=== PATIENT | male | born 1960 | race Caucasian/White ===

== ENCOUNTER 2022-06-16 16:22 | Outpatient (RCR) | payer OTHER, SELFPAY ==
--- NOTE | 2022-06-16 17:45 | PT.OPE ---
PT [place] Outpatient Eval PT [facility] Outpatient Eval Start: 06/16/22 17:21 Freq: Status: Active Protocol: Document 06/16/22 17:21 PARVIN (Rec: 06/16/22 17:39 [facility] Desktop) E-signed By Ever Kelly, PT, ATC Physical Therapy Outpatient Evaluation Insurance Information Insurance Name Medicare B Medical Diagnosis R knee OA Treating Diagnosis R knee pain R knee stiffness Referring Damian BaldwinC Subjective Subjective Pain had been rated a 6/10 a month ago but performance modification at his place of work has helped to lessen amount to 2/10. Seeking a home ex program to work on independently. Will return to PT if symptoms should not improve after a month. 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 Also pain along medial joint line of R knee with active extension-end range. Strength 5/5 R knee ext and flexion Swelling None observed Palpation Tender along medial joint line and inferomedial patella Posture mild genu varum bilaterally. Sensation/Reflexes Normal and symetric Other/Pertinent Objective Chet negative Stable to varus and valgus stress at 0 and 30 degrees Positive pain with patella compression and active quad set Hip ROM WFL's, unrestricted. Assessment Assessment/Impression Lyndon is a pleasant 61 year old who resides with a tire care manager in [place] [facility] [place]. 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 His R knee has improved since activity modifications have been implemented at work (as suggested my his tire care manager-Edwina Buitrago). The examination and diagnostics identified R knee osteoarthritis in the tibiofemoral and patellofemoral joints. Lyndon's tire care manager is requesting a home program-single visit for performance outside of the rehab setting. An exercise program focused towards strengthening of the hip and thigh muscle groups was determined necessary following todays examination. The program was performed and provided to the patient's caregiver. Primary Functional Limitations Extended standing Repeated squatting or stairs Twisting Plan of Care Rehabilitation Potential Good Physical Therapy Goals 1.To demonstrate ability for ex performance for each items listed on his home ex program. 2.Provide written copy to patient's caregiver. Coordination/Communication With Referral Source Frequency/Duration One time Patient Will Be Discharged From Therapy Independent w/HEP Discharge Plan Comments One time visit, evaluation and discharge. Evaluation Billing Untimed Code Treatment Minutes 30 PT Eval No Charge No Complexity Low Certification Information Initial Certification Date 06/16/22 Ending Certification Date 09/15/22 Provider Signature Shows Agreement With POC & Medical Necessity Physician Comment/Change Comment or Changes Physician NPI Number #
== END 2023-04-23 23:59 | disposition home or self-care (01) ==
PROVIDERS: PCP Physician Assistant Medical; Visit Provider Physician Assistant Surgical
DX: M25.561 Pain in right knee (principal); M17.11 Unilateral primary osteoarthritis, right knee; M25.661 Stiffness of right knee, not elsewhere classified; Z51.89 Encounter for other specified aftercare
CPT/HCPCS: 97110; 97161

== ENCOUNTER 2023-04-02 07:18 | Outpatient (CLI) | payer OTHER, SELFPAY | END 2023-04-02 07:19 | disposition home or self-care (01) | PROVIDERS: PCP Physician Assistant Medical; Visit Provider Physician Assistant Medical | DX: Z00.00 Encounter for general adult medical examination without abnormal findings (principal); E78.5 Hyperlipidemia, unspecified; E88.81 Metabolic syndrome and other insulin resistance; F32.A Depression, unspecified; Z12.5 Encounter for screening for malignant neoplasm of prostate | CPT/HCPCS: 80053; 80061; 84153; 84443 ==

== ENCOUNTER 2023-05-22 08:51 | Outpatient (CLI) | payer MEDICARE, SELFPAY | END 2023-05-22 08:52 | disposition home or self-care (01) | LOC: RAD 08:53 | PROVIDERS: PCP Physician Assistant Medical; Visit Provider Physician Assistant Medical | DX: R01.1 Cardiac murmur, unspecified (principal); I35.1 Nonrheumatic aortic (valve) insufficiency; I34.0 Nonrheumatic mitral (valve) insufficiency; I07.1 Rheumatic tricuspid insufficiency | CPT/HCPCS: 93306 ==

== ENCOUNTER 2024-05-23 08:11 | Outpatient (CLI) | payer MEDICARE, SELFPAY ==
--- OUTSIDE RECORDS SUMMARY | 2024-05-23 08:24 | XMS_ITS | Encounter Summary ---
Author Organization [facility] Address [address], [place] [address] Care Team Providers Care Agronomy Specialist Name Role Phone Md Yandel Primary Care Provider Unavailabl e Reason for Visit * Reason Comments Follow-up Encounter Details Date Type Department Care Team (Late st Contact Info) Description 03/23/2024 4:00 PM CDT Office Visit [address] [address] Diane Valenzuela MSW, PIGMENT GRINDER [address] [place], [place] [id number] Anxiety disorder, unspecified type (HRC) (Primary Dx); Depressive disorder; Mild intellectual disabilities; Grief reaction (HRC) Social History Tobacco Use Types Packs/Day Years Used Date Smoking Tobacco: Every Day Cigarettes Sex and Gender Information Value Date Recorded Sex Assigned at Not on file Gender Identity Not on file Sexual Orientation Not on file documented as of this encounter Progress Notes * Diane Valenzuela MSW, PIGMENT GRINDER - 03/23/2024 4:00 PM CDT Subjective In Person Visit: This appointment was conducted in person with the patient in the clinic. Patient presents today for a family session with patient present, to address anxiety, depression, and psychosocial issues. How Aníbal's mental status and behavior affects the family: Patient's sister present during all today's visit. Sister Jillian is patient's guardian-reviewing treatment plan. Family's response to intervention: Sister responsive to being present in appointment today, expresses verbal consent with treatment plan and continuing care 1 time per month. Frequency may vary depending on patient need. Sister also where she is able to call or send message. Patient was present during session Interactive complexity was billed due to Interactive complexity was billed due to communication difficulties among participants that complicated care delivery as the patient/caregiver(s) demonstratedrepeated questions. Extra time required for processing information. Start time: 3:57 p.m., End time: 4:47 p.m.. Based on today's clinical assessment of the patient, patient appears to have the capacity to participate and benefit from psychotherapeutic intervention. Most recent PHQ-9: 11/04/2023 PHQ-9 PHQ9 Score - Smartform (Adult) 0 Patient's sister is present during today's session. We reviewed patient treatment plan. Sister noting concerns related to patient's medical and indicating he will have a follow-up with his physician sometime in the next month. She will have information sent to clinician. She does express her concern s related to his echo last year. We discussed patient feeling tired often and questioning whether this is a side effect from medication, a physical issue/labs or in relation to mental health or behavioral. We discuss ruling out medical concerns 1st. Additionally, discussed the importance of family to Lyndon, having connecting time. This is a priority for Lyndon as well as family. Patient's symptoms impact their functioning in the following areas: Communication with others and Eating. Objective The patient is alert and casually groomed. He behaved in a(n) cooperative, engaged manner during the session today. His affect is anxious. Insight is normal, judgment is normal. His orientation, fundof knowledge and memory are intact. Risk of harm to self: None Reported Risk of harm to others: None Reported Assessment/Plan 1. Anxiety disorder, unspecified type (HRC) 2. Depressive disorder 3. Mild intellectual disabilities 4. Grief reaction (HRC) Treatment Goals: Depression GOAL OBJECTIVE INTERVENTION METHODS PROGRESS TOWARDS GOAL Target Date Depression: Develop skills to manage mood and/or eliminate depressive symptoms. Objective: The patient will be able to identify, challenge, and replace negative, hopeless talk with positive, realistic and empowering talk. identify how stress impacts mental health symptoms, and develop 3-5 effective stress management techniques. Behavioral therapy, CBT, Insight-Oriented Therapy, Solution Focused Therapy and Supportive psychotherapy Progress to date: Stable- 11/04/2025 Anxiety GOAL OBJECTIVE INTERVENTION METHODS PROGRESS TOWARDS GOAL Target Date Anxiety: Reduce apprehensive expectation and intrusive worry associated with behavioral rituals and physicalmanifestations. Objective: The patient will identify, challenge, and replace fearful talk with positive, realistic, and empowering talk Stress management strateges Behavioral therapy, CBT, Relaxation training, Solution Focused Therapy and Supportive psychotherapy Progress to date: stable 11/04/2024 Given the patient's symptoms and level of functioning, it is recommended that the patient be seen in 1 month. Follow up on navigating stressors. Ongoing therapy to address symptoms discussed in today's appointment. documented in this encounter Plan of Treatment Upcoming Encounters Date Type Department Care Team (Late st Contact Info) Description 05/25/2024 4:00 PM CDT Appointment [facility] [address] [place] [address] Diane Valenzuela MSW PIGMENT GRINDER [address], [place] [address] 06/29/2024 4:00 PM CDT Appointment [facility] [address] [place] [address] Diane Valenzuela MSW, PIGMENT GRINDER [address], [place] [address] 07/27/2024 4:00 PM CDT Appointment [facility] [address] [place] [address] Diane Valenzuela MSW, PIGMENT GRINDER [address], [place] [address] documented as of this encounter Visit Diagnoses Diagnosis Anxiety disorder, unspecified type (HRC)- Primary Depressive disorder Depressive disorder, not elsewhere classified Mild intellectual disabilities Grief reaction (HRC) Adjustment disorder with depressed mood documented in this encounter Care Teams Agronomy Specialist Relationship Specialty Start Date End Date Md Yandel PCP - General 09/22/11 documented as of this encounter
--- OUTSIDE RECORDS SUMMARY | 2024-05-23 08:24 | XMS_ITS | Encounter Summary ---
Author Organization [facility] Address [address] [address] Care Team Providers Care Engagement Quality Consultant Name Role Phone Md Yandel Primary Care Provider Unavailabl e Reason for Visit * Reason Comments Follow-up Encounter Details Date Type Department Care Team (Late st Contact Info) Description 02/17/2024 4:00 PM CDT Office Visit [address] [address] Diane Valenzuela MSW, INSEAM LEVELER [address] [place], [place] [phone] Anxiety disorder, unspecified type (HRC) (Primary Dx); Depressive disorder; Mild intellectual disabilities Social History Tobacco Use Types Packs/Day Years Used Date Smoking Tobacco: Every Day Cigarettes Sex and Gender Information Value Date Recorded Sex Assigned at Not on file Gender Identity Not on file Sexual Orientation Not on file documented as of this encounter Progress Notes * Diane Valenzuela MSW, INSEAM LEVELER - 02/17/2024 4:00 PM CDT Subjective In Person Visit: This appointment was conducted in person with the patient in the clinic. Patient presents today for an individual session, to address anxiety, depression, and grief/loss. . Start time: 4:00 p.m., End time: 4:46 p.m.. Based on today's clinical assessment of the patient, patient appears to have the capacity to participate and benefit from psychotherapeutic intervention. Interactive complexity was billed due to communication difficulties among participants that complicated care delivery as the patient/caregiver(s) demonstrated repeated questions. Extra time required for processing information. Most recent PHQ-9: 11/04/2023 PHQ-9 PHQ9 Score - Smartform (Adult) 0 Provided supportive listening as patient shares feeling a little sad today. He attended his friend Ulises's, . Ulises had been his housemate for approximately 8 years. Time spent reminiscing, patient sharing stories. Patient also sharing some of his wishes related to his wanting to be cremated, a special song called ???I believe I can fly?? , having a color book and crayons with him and music-when he dies. He also ponders what cayetano would be like-being able to do what he wants to do. Patient also shares sometimes worrying that he will screw up-others being upset with him. He shares examples at work, recognizing he wants to do the best that he can. We will continue to discuss. Sister out of town and not available to meet today. Patient's symptoms impact their functioning in the following areas: Communication with others. Objective The patient is alert and casually groomed. He behaved in a(n) cooperative, engaged manner during the session today. His affect is subdued. Insight is normal, judgment is normal. His [...] seen in 1 month. Follow up on grief/loss, stressors. Ongoing therapy to address symptoms discussed in today's appointment. documented in this encounter Plan of Treatment Upcoming Encounters Date Type Department Care Team (Late st Contact Info) Description 05/25/2024 4:00 PM CDT Appointment [facility] [address] [place] [address] Diane Valenzuela MSW, LICSW [address] [address] 06/29/2024 4:00 PM CDT Appointment [facility] [address] [place] [address] Diane Valenzuela MSW, LICSW [address] [place] [address] 07/27/2024 4:00 PM CDT Appointment [facility] [address] [place] [address] Diane Valenzuela MSW INSEAM LEVELER [address], [place] [address] documented as of this encounter Visit Diagnoses Diagnosis Anxiety disorder, unspecified type (HRC)- Primary Depressive disorder Depressive disorder, not elsewhere classified Mild intellectual disabilities documented in this encounter Care Teams Engagement Quality Consultant Relationship Specialty Start Date End Date Md Yandel PCP - General 09/22/11 documented as of this encounter
--- OUTSIDE RECORDS SUMMARY | 2024-05-23 08:24 | XMS_ITS | Encounter Summary ---
Author Organization [facility] Address [address], [place] [address] Care Team Providers Care Undercoater Name Role Phone Md Yandel Primary Care Provider Unavailabl e Reason for Visit * Reason Comments Follow-up Encounter Details Date Type Department Care Team (Late st Contact Info) Description 04/20/2024 4:00 PM CDT Office Visit [address] [address] Diane Valenzuela MSW, RECORDAK OPERATOR [address] [place], [place] [phone] Anxiety disorder, unspecified type (HRC) (Primary Dx); Depressive disorder; Mild intellectual disabilities; Grief reaction (HRC) Social History Tobacco Use Types Packs/Day Years Used Date Smoking Tobacco: Every Day Cigarettes Sex and Gender Information Value Date Recorded Sex Assigned at Not on file Gender Identity Not on file Sexual Orientation Not on file documented as of this encounter Progress Notes * Diane Valenzuela MSW, RECORDAK OPERATOR - 04/20/2024 4:00 PM CDT Subjective In Person Visit: This appointment was conducted in person with the patient in the clinic. Patient presents today for an individual session, to address anxiety and depression. . Start time: 3:57 p.m., End time: 4:42 p.m.. Based on today's clinical assessment of the patient, patient appears to have the capacity to participate and benefit from psychotherapeutic intervention. Interactive complexity was billed due to communication difficulties among participants that complicated care delivery as the patient/caregiver(s) demonstrated repeated questions. Extra time required for processing information. Most recent PHQ-9: 03/23/2024 PHQ-9 PHQ9 Score - Smartform (Adult) 5 Provided supportive listening as patient shares updates since last visit. He shares he stayed with his family over the 07 of April in enjoyed playing games, family time. Additionally, he shares some work stressors, feeling anxious that he would be blamed for another coworkers errors. We spent time discussing this, patient able to pause and recognize that would not happen. He brings in his med list today and that will be sent to records for scanning. He shares his blood pressure has been good and he has lost a few lb. He shares enjoying going for walks, he has wrote his bike. He recognizes there are times when he does not feel like doing it and does it anyway. Patient shares he is birthday is [birth year], he will be 64. He believes his sister is planning something and is excited. Clinician validating Patient's symptoms impact their functioning in the following areas: Communication with others. Objective The patient is alert and casually groomed. He behaved in a(n) cooperative, engaged manner during the session today. His affect is appropriate. Insight is normal, judgment is normal. His orientation, fund of knowledge and memory are intact. Risk of [...] and Supportive psychotherapy Progress to date: Stable- 11/04/2024 Anxiety GOAL OBJECTIVE INTERVENTION METHODS PROGRESS TOWARDS GOAL Target Date Anxiety: Reduce apprehensive expectation and intrusive worry associated with behavioral rituals and physicalmanifestations. Objective: The patient will identify, challenge, and replace fearful talk with positive, realistic, and empowering talk Stress management strateges Behavioral therapy, CBT, Relaxation training, Solution Focused Therapy and Supportive psychotherapy Progress to date: stable 11/04/2024 Type of Service Frequency Resolution Date Psychotherapy with patient, 45 minutes. Length may vary depending on need 1 time per month. Frequency may vary Depending on need 12 Month: 11/04/2024 Given the patient's symptoms and level of functioning, it is recommended that the patient be seen in 1 month. Follow up on birthday. Ongoing therapy to address symptoms discussed in today's appointment. documented in this encounter Plan of Treatment Upcoming Encounters Date Type Department Care Team (Late st Contact Info) Description 05/25/2024 4:00 PM CDT Appointment [facility] [address] [place] [address] Diane Valenzuela MSW, LICSW [address], [place] [address] 06/29/2024 4:00 PM CDT Appointment [facility] [address] [place] [address] Diane Valenzuela MSW, RECORDAK OPERATOR [address] [place] [address] 07/27/2024 4:00 PM CDT Appointment [facility] [address] [place] [address] Diane Valenzuela MSW, RECORDAK OPERATOR [address] [place] [address] documented as of this encounter Visit Diagnoses Diagnosis Anxiety disorder, unspecified type (HRC)- Primary Depressive disorder Depressive disorder, not elsewhere classified Mild intellectual disabilities Grief reaction (HRC) Adjustment disorder with depressed mood documented in this encounter Care Teams Undercoater Relationship Specialty Start Date End Date Md Yandel PCP - General 09/22/11 documented as of this encounter
--- OUTSIDE RECORDS SUMMARY | 2024-05-23 08:24 | XMS_ITS | Encounter Summary ---
Author Organization [facility] Address [address], [place] [address] Care Team Providers Care Assistant Professor Of Religion Name Role Phone Md Yandel Primary Care Provider Unavailabl e Reason for Visit * Reason Comments UPDATE Encounter Details Date Type Department Care Team (Late st Contact Info) Description 03/22/2024 Telephone [facility] [address] [place] [address] Diane Valenzuela, POKER ROOM MANAGER, [facility] [address] [facility] [place], [place] [address] UPDATE Social History Tobacco Use Types Packs/Day Years Used Date Smoking Tobacco: Every Day Cigarettes Sex and Gender Information Value Date Recorded Sex Assigned at Not on file Gender Identity Not on file Sexual Orientation Not on file documented as of this encounter Nursing Notes * Michelle Baeza - 03/22/2024 9:16 AM CDT Foster Care Provider (Anders) called. Said Sister is bringing patient to appointment tomorrow, with you. Anders wanted you to know, that patient feels that he's in trouble, because his Sister is comingwith him. Anders asked if you could address this, at appt tomorrow. Said you don't need to call him back, unless you have further questions. documented in this encounter Plan of Treatment Upcoming Encounters Date Type Department Care Team (Late st Contact Info) Description 05/25/2024 4:00 PM CDT Appointment [facility] [address] [place] [address] Diane Valenzuela MSW, REGULATORY AFFAIRS PORTFOLIO LEADER [address], [place] [address] 06/29/2024 4:00 PM CDT Appointment [facility] [address] [place] [address] Diane Valenzuela MSW, REGULATORY AFFAIRS PORTFOLIO LEADER [address], [place] [address] 07/27/2024 4:00 PM CDT Appointment [facility] [address] [place] [address] Diane Valenzuela MSW, REGULATORY AFFAIRS PORTFOLIO LEADER [address], [place] [address] documented as of this encounter Visit Diagnoses Not on filedocumented in this encounter Care Teams Assistant Professor Of Religion Relationship Specialty Start Date End Date Md Yandel PCP - General 09/22/11 documented as of this encounter
--- OUTSIDE RECORDS SUMMARY | 2024-05-23 08:24 | XMS_ITS | Clinical Summary ---
Author Organization [facility] Address [address] [address] Care Team Providers Care General Assembler Name Role Phone Md Yandel Primary Care Provider Unavailabl e Source Comments You are receiving this document as you are listed as the primary care provider,follow-up provider, or the patient has been referred to you for consultation.This is in compliance with the Medicare and[facility] EHR Incentive Program,which states Providers who transition their patient to another setting of careor provider of care or refers their patient to another provider of care shouldprovide summary care record for each transition of care or referral. [facility] Allergies No known active allergies Medications Medication Sig Dispensed Refills Start Date End Date Status escitalopram oxalate (AKA LEXAPRO) 10 MG tablet Take 1 tablet by mouth daily (every 24 hours). 90 tablet 3 1 Active gemfibrozil (LOPID) 600 MG tablet Take 600 mg by mouth 2 times daily. Take 1/2 hours before food. Indications: HYPERTRIGLYCERIDEMIA 1 Active cephALEXin (KEFLEX) 500 MG capsule Take 1 capsule by mouth 3 times daily. 30 capsule 0 1 Active NIACIN ER OR Take 1,000 mg by mouth nightly. Take with food. Do not cut/crush/chew. 1 Active acetaminophen (TYLENOL) 325 MG tablet Take 325-650 mg by mouth every 4 hours as needed. Maximum 12 tablets per day 1 Active fluticasone (FLONASE) 50 MCG/ACT nasal solution Place 2 sprays into each nostril daily (every 24 hours). Dose is for each nostril. Indications: ALLERGIC RHINITIS 1 Active Active Problems Problem Noted Date Diagnosed Date Mental retardation 06/19/2011 Overview (05/27/2017): Unspecified intellectual disabilities ROSA (generalized anxiety disorder) 06/19/2011 Encounters Date Type Department Care Team Description 04/20/2024 4:00 PM CDT Office Visit [facility] [id number] [place] [address] Diane Valenzuela MSW, ESA Anxiety disorder, unspecified type (HRC) (Primary Dx); Depressive disorder; Mild intellectual disabilities; Grief reaction (HRC) 03/23/2024 4:00 PM CDT Office Visit [address] [address] Diane Valenzuela MSW, ESA Anxiety disorder, unspecified type (HRC) (Primary Dx); Depressive disorder; Mild intellectual disabilities; Grief reaction (HRC) 03/22/2024 Telephone [facility] [address] [place] [address] Diane Valenzuela MSW, ESA UPDATE from Last 3 Months Social History Tobacco Use Types Packs/Day Years Used Date Smoking Tobacco: Every Day Cigarettes Sex and Gender Information Value Date Recorded Sex Assigned at Not on file Gender Identity Not on file Sexual Orientation Not on file Last Filed Vital Signs Vital Sign Reading Time Taken Comments Blood Pressure 124/75 05/05/2011 7:04 PM CDT Pulse 70 05/05/2011 7:04 PM CDT Temperature 36.8 ??C (98.2 ??F) 05/05/2011 7:04 PM CD T Respiratory Rate 16 05/05/2011 7:04 PM CDT Oxygen Saturation - - Inhaled Oxygen Concentration - - Weight - - Height - - Body Mass Index - - Plan of Treatment Upcoming Encounters Date Type Department Care Team (Late st Contact Info) Description 05/25/2024 4:00 PM CDT Appointment [facility] [address] [place] [address] Diane Valenzuela MSW, GREY WASHER [address], [place] [address] 06/29/2024 4:00 PM CDT Appointment [facility] [address] [place] [address] Diane Valenzuela, CROP DUSTER, GREY WASHER [address] [place] [address] 07/27/2024 4:00 PM CDT Appointment [facility] [address] [place] [address] Diane Valenzuela, CROP DUSTER, GREY WASHER [address] [place] [address] Health Maintenance Due Date Last Done Comments Colon Cancer Screening Plan Due 1961 Hep C Screening (Preventive Services) 1961 PSA Screening Discussion 1961 Pneumococcal (1 - PCV) 1967 HIV Screening (Preventive Services) 1977 Cholesterol 1996 Zoster/Shingles (1 of 2) 2011 DTaP/Tdap/Td (2 - Tdap) 01/17/2021 01/17/2011 COVID-19 Vaccine (2 - season) 2023 01/11/2021 Medicare Annual Wellness Visit 10/05/2023 Influenza (#1) 2024 08/06/2020, 07/05, 07/21/2018, Additional history exists HepA Aged Out No longer eligi ble based on patient's age to complete this topic HepB Aged Out No longer eligi ble based on patient's age to complete this topic Hib Aged Out No longer eligi ble based on patient's age to complete this topic IPV (Polio) Aged Out No longer eligi ble based on patient's age to complete this topic MCV4 Aged Out No longer eligi ble based on patient's age to complete this topic Care Teams General Assembler Relationship Specialty Start Date End Date Md Yandel PCP - General 09/22/11
--- OUTSIDE RECORDS SUMMARY | 2024-05-23 08:25 | XMS_ITS | Encounter Summary ---
[facility] Address [address] [address] Care Team Providers Care Oral Surgeon Name Role Phone Md Yandel Primary Care Provider Unavailabl e Reason for Visit * Reason Comments FYI Encounter Details Date Type Department Care Team (Late Contact Info) Description 01/28/2024 Telephone [facility] [address] [place] [address] Diane Valenzuela, BELLOWS FILLER, CONVEYOR OPERATOR [address] [place] [address] FYI Social History Tobacco Use Types Packs/Day Years Used Date Smoking Tobacco: Every Day Cigarettes Sex and Gender Information Value Date Recorded Sex Assigned at Not on file Gender Identity Not on file Sexual Orientation Not on file documented as of this encounter Nursing Notes * Dolly Webber - 01/28/2024 11:23 AM CDT Anders pts foster care provider calling, he was able to speak to pts sister Shaunna. Shaunna will be able to attend upcoming appt with pt. documented in this encounter Plan of Treatment Upcoming Encounters Date Type Department Care Team (Late Contact Info) Description 05/25/2024 4:00 PM CDT Appointment [facility] [address] [place] [address] Diane Valenzuela, BELLOWS FILLER, CONVEYOR OPERATOR [address] [place] [address] 06/29/2024 4:00 PM CDT Appointment [facility] [address] [place] [address] Diane Valenzuela, BELLOWS FILLER, CONVEYOR OPERATOR [address] [place] [address] 07/27/2024 4:00 PM CDT Appointment [facility] [address] [place] [address] Diane Valenzuela, BELLOWS FILLER, CONVEYOR OPERATOR [address] [place] [address] documented as of this encounter Visit Diagnoses Not on filedocumented in this encounter Care Teams Oral Surgeon Relationship Specialty Start Date End Date Md Yandel PCP - General 09/22/11 documented as of this encounter
== END 2024-05-23 08:12 | disposition home or self-care (01) ==
PROVIDERS: PCP Physician Assistant Medical; Visit Provider Physician Assistant Medical
DX: I10 Essential (primary) hypertension (principal); Z83.42 Family history of familial hypercholesterolemia; Z13.220 Encounter for screening for lipoid disorders
CPT/HCPCS: 80053; 80061

== ENCOUNTER 2024-07-01 08:59 | Outpatient (CLI) | payer MEDICARE, SELFPAY ==
--- OUTSIDE RECORDS SUMMARY | 2024-07-01 09:01 | XMS_ITS | Encounter Summary ---
Author Organization [facility] Address [address] [address] Care Team Providers Care Auth Specialist Name Role Phone Md Yandel Primary Care Provider Unavailabl e Reason for Visit * Reason Comments Follow-up Encounter Details Date Type Department Care Team (Late st Contact Info) Description 05/25/2024 Telephone [facility] [address] [place] [address] Diane Valenzuela MSW, LICSW [address] [place], [place] [phone] Follow-up Social History Tobacco Use Types Packs/Day Years Used Date Smoking Tobacco: Every Day Cigarettes Sex and Gender Information Value Date Recorded Sex Assigned at Not on file Gender Identity Not on file Sexual Orientation Not on file documented as of this encounter Nursing Notes * Diane Valenzuela MSW, LICSW - 05/25/2024 7:42 AM CDT Voice message received from patient's caregiver, Blake requesting a return call. Clinician returnedcaregivers call. He reports patient has had some struggles with coworkers and beliefs that would behelpful to discuss coping strategies as well as not taking things personal. We will discuss with patient. documented in this encounter Plan of Treatment Upcoming Encounters Date Type Department Care Team (Late st Contact Info) Description 07/27/2024 4:00 PM CDT Appointment [facility] [address] [place] [address] Diane Valenzuela, SWITCHBOARD OPERATOR HELPER, [facility] [address] [place] [address] documented as of this encounter Visit Diagnoses Not on filedocumented in this encounter Care Teams Auth Specialist Relationship Specialty Start Date End Date Md Yandel PCP - General 09/22/11 documented as of this encounter
--- OUTSIDE RECORDS SUMMARY | 2024-07-01 09:01 | XMS_ITS | Encounter Summary ---
Author Organization [facility] Address [address] [address] Care Team Providers Care Senior Research Executive Name Role Phone Md Yandel Primary Care Provider Unavailabl e Reason for Visit * Reason Comments Follow-up Encounter Details Date Type Department Care Team (Late st Contact Info) Description 06/29/2024 4:00 PM CDT Telemedicine [facility] [id number] [place] [address] Diane Valenzuela MSW, SECONDARY SET UP MAN [address] [place], [place] [address] Anxiety disorder, unspecified type (HRC) (Primary Dx); Depressive disorder; Mild intellectual disabilities; Grief reaction (HRC) Social History Tobacco Use Types Packs/Day Years Used Date Smoking Tobacco: Every Day Cigarettes Sex and Gender Information Value Date Recorded Sex Assigned at Not on file Gender Identity Not on file Sexual Orientation Not on file documented as of this encounter Progress Notes * Diane Valenzuela MSW, SECONDARY SET UP MAN - 06/29/2024 4:00 PM CDT Subjective Video Visit: This appointment was conducted via telehealth (video) as it is the patient's preference and it is appropriate for the treatment being provided. Patient location: home, Clinician location: home. Patient presents today for an individual session, to address anxiety, depression, and grief/loss. . Interactive complexity was billed due to communication difficulties among participants that complicated care delivery as the patient/caregiver(s) demonstrated repeated questions. Extra time required for processing information. Start time: 3:59 p.m., End time: 4:22 p.m.. Based on today's clinical assessment of the patient, patient appears to have the capacity to participate and benefit from psychotherapeutic intervention. Most recent PHQ-9: 03/23/2024 PHQ-9 PHQ9 Score - Smartform (Adult) 5 Provided supportive listening as patient shares some updates. He shares he had a doctor's appointment, they are still monitoring his medical conditions. He continues to work on cutting back on sugars, drinking more water. His work schedule will be changing and he will be working full days Thursday, Thursday, Thursday and 1/2 days on Thursday and . He shares he seems to be getting along a bitbetter with 1 of his coworkers and we spent time discussing his focusing on his work and what he needs to accomplish. Patient request a shorter visit today. He shares he was getting headache from some challenges with his hearing aids and some wax buildup. Patient's symptoms impact their functioning in the following areas: Communication with others. Objective The patient is alert and casually groomed. He behaved in a(n) cooperative, engaged manner during the session today. His affect is appropriate. Insight is good, developmentally appropriate , judgment is good, developmentally appropriate . His orientation, fund of knowledge and memory [...] seen in 1 month. Follow up on new work schedule, getting along with others. Ongoing therapy to address symptoms discussed in today's appointment. documented in this encounter Plan of Treatment Upcoming Encounters Date Type Department Care Team (Late st Contact Info) Description 07/27/2024 4:00 PM CDT Appointment [facility] [address] [place] [address] Diane Valenzuela MSW, SECONDARY SET UP MAN [address], [place] [address] documented as of this encounter Visit Diagnoses Diagnosis Anxiety disorder, unspecified type (HRC)- Primary Depressive disorder Depressive disorder, not elsewhere classified Mild intellectual disabilities Grief reaction (HRC) Adjustment disorder with depressed mood documented in this encounter Care Teams Senior Research Executive Relationship Specialty Start Date End Date Md Yandel PCP - General 09/22/11 documented as of this encounter
--- OUTSIDE RECORDS SUMMARY | 2024-07-01 09:01 | XMS_ITS | Clinical Summary ---
Author Organization [facility] Address [address], [place] [address] Care Team Providers Care Nurse Plastics Name Role Phone Md Yandel Primary Care Provider Unavailabl e Source Comments You are receiving this document as you are listed as the primary care provider,follow-up provider, or the patient has been referred to you for consultation.This is in compliance with the Medicare and[facility] EHR Incentive Program,which states Providers who transition their patient to another setting of careor provider of care or refers their patient to another provider of care shouldprovide summary care record for each transition of care or referral. [facility] Allerg[facility] No known active allergies Medications Medication [...] Encounters Date Type Department Care Team Description 06/29/2024 4:00 PM CDT Telemedicine [facility] [address] [place] [address] Diane Valenzuela, BROODMARE FOREMAN, ACTIVITIES THERAPIST Anxiety disorder, unspecified type (HRC) (Primary Dx); Depressive disorder; Mild intellectual disabilities; Grief reaction (HRC) 05/25/2024 4:00 PM CDT Office Visit [facility] [address] [place] [address] Diane Valenzuela, BROODMARE FOREMAN, ACTIVITIES THERAPIST Anxiety disorder, unspecified type (HRC) (Primary Dx); Depressive disorder; Mild intellectual disabilities 05/25/2024 Telephone [facility] [address] [place] [address] Diane Valenzuela, BROODMARE FOREMAN, ACTIVITIES THERAPIST Follow-up 04/20/2024 4:00 PM CDT Office Visit [address] [address] Diane Valenzuela, BROODMARE FOREMAN, ACTIVITIES THERAPIST Anxiety disorder, unspecified type (HRC) (Primary Dx); Depressive disorder; Mild intellectual disabilities; Grief reaction (HRC) from Last 3 Months Social History Tobacco [...] Info) Description 07/27/2024 4:00 PM CDT Appointment [facility] [address] [place] [address] Diane Valenzuela, BROODMARE FOREMAN, [facility] [address] [place] [address] Health Maintenance Due Date Last Done Comments Colon Cancer Screening Plan Due 1961 Hep C Screening (Preventive Services) 1961 PSA Screening Discussion 1961 Pneumococcal (1 - PCV) 1967 HIV Screening (Preventive Services) 1977 Cholesterol 1996 Zoster/Shingles (1 of 2) 2011 DTaP/Tdap/Td (2 - Tdap) 01/17/2021 01/17/2011 Medicare Annual Wellness Visit 10/05/2023 COVID-19 Vaccine (2 - season) 2024 01/11/2021 Influenza (#1) 2024 08/06/2020, 07/05, 07/21/2018, Additional history exists RSV (1 - 1-dose 75+ series) 2036 HepA Aged Out No longer eligi ble [...] age to complete this topic Care Teams Nurse Plastics Relationship Specialty Start Date End Date RiantaMd osbaldo PCP - General 09/22/11
--- OUTSIDE RECORDS SUMMARY | 2024-07-01 09:01 | XMS_ITS | Encounter Summary ---
Author Organization [facility] Address [address], [place] [address] Care Team Providers Care Toucher Up Name Role Phone Md Yandel Primary Care Provider Unavailabl e Reason for Visit * Reason Comments Follow-up Encounter Details Date Type Department Care Team (Late st Contact Info) Description 04/20/2024 4:00 PM CDT Office Visit [address] [address] Diane Valenzuela MSW, EXCHANGE ENGINEER [address] [place], [place] [address] Anxiety disorder, unspecified type (HRC) (Primary Dx); Depressive disorder; Mild intellectual disabilities; Grief reaction (HRC) Social History Tobacco Use Types Packs/Day Years Used Date Smoking Tobacco: Every Day Cigarettes Sex and Gender Information Value Date Recorded Sex Assigned at Not on file Gender Identity Not on file Sexual Orientation Not on file documented as of this encounter Progress Notes * Diane Valenzuela MSW, EXCHANGE ENGINEER - 04/20/2024 4:00 PM CDT Subjective In [...] Info) Description 07/27/2024 4:00 PM CDT Appointment [facility] [address] [place], [place] [address] Diane Valenzuela MSW, EXCHANGE ENGINEER [address], [place] [address] documented as of this encounter Visit Diagnoses Diagnosis Anxiety disorder, unspecified type (HRC)- Primary Depressive disorder Depressive disorder, not elsewhere classified Mild intellectual disabilities Grief reaction (HRC) Adjustment disorder with depressed mood documented in this encounter Care Teams Toucher Up Relationship Specialty Start Date End Date Md Yandel PCP - General 09/22/11 documented as of this encounter
--- OUTSIDE RECORDS SUMMARY | 2024-07-01 09:01 | XMS_ITS | Encounter Summary ---
Author Organization [facility] Address [address], [place] [address] Care Team Providers Care Education Program Specialist Name Role Phone Md Yandel Primary Care Provider Unavailabl e Reason for Visit * Reason Comments Follow-up Encounter Details Date Type Department Care Team (Late st Contact Info) Description 05/25/2024 4:00 PM CDT Office Visit [facility] [address] [place] [address] Diane Valenzuela MSW, TOUR CONDUCTOR [address] [place], [place] [address] Anxiety disorder, unspecified type (HRC) (Primary Dx); Depressive disorder; Mild intellectual disabilities Social History Tobacco Use Types Packs/Day Years Used Date Smoking Tobacco: Every Day Cigarettes Sex and Gender Information Value Date Recorded Sex Assigned at Not on file Gender Identity Not on file Sexual Orientation Not on file documented as of this encounter Progress Notes * Diane Valenzuela MSW, TOUR CONDUCTOR - 05/25/2024 4:00 PM CDT Subjective In Person Visit: This appointment was conducted in person with the patient in the clinic. Patient presents today for an individual session, to address anxiety and psychosocial issues. . Interactive complexity was billed due to communication difficulties among participants that complicated care delivery as the patient/caregiver(s) demonstrated repeated questions. Extra time required for processing information. Start time: 3:56 p.m., End time: 4:41 p.m.. Based on today's clinical assessment of the patient, patient appears to have the capacity to participate and benefit from psychotherapeutic intervention. Most recent PHQ-9: 03/23/2024 PHQ-9 PHQ9 Score - Smartform (Adult) 5 Provided supportive listening as patient shares he is ???crabby?? . He shares work stressors, feeling annoyed, irritable with a co-worker. Today's session is focusing on navigating communicating withthis individual, setting healthy boundaries and ???staying in his violet. Additionally, identifying patient's fear of not being able to complete his own job, others also may be having this same fear. Assisting patient with reframing. Calming breaths Patient's symptoms impact their functioning in the following areas: Communication with others. Objective The patient is alert and casually groomed. He behaved in a(n) cooperative, engaged manner during the session today. His affect is irritable. Insight is developmentally appropriate , judgment is good,developmentally appropriate . His orientation, fund of knowledge and memory are intact. Risk of harm to self: None Reported Risk of harm to others: None Reported Assessment/Plan 1. Anxiety disorder, unspecified type (HRC) 2. Depressive disorder 3. Mild intellectual disabilities Treatment Goals: Depression GOAL OBJECTIVE INTERVENTION METHODS [...] seen in 1 month. Follow up on work relationships. Ongoing therapy to address symptoms discussed in today's appointment. documented in this encounter Plan of Treatment Upcoming Encounters Date Type Department Care Team (Late st Contact Info) Description 07/27/2024 4:00 PM CDT Appointment [facility] [address] [place] [address] Diane Valenzuela MSW, TOUR CONDUCTOR [address] [place] [address] documented as of this encounter Visit Diagnoses Diagnosis Anxiety disorder, unspecified type (HRC)- Primary Depressive disorder Depressive disorder, not elsewhere classified Mild intellectual disabilities documented in this encounter Care Teams Education Program Specialist Relationship Specialty Start Date End Date Md Yandel PCP - General 09/22/11 documented as of this encounter
--- OUTSIDE RECORDS SUMMARY | 2024-07-01 09:02 | XMS_ITS | Encounter Summary ---
Author Organization [facility] Address [address], [place] [address] Care Team Providers Care Track Mechanic Name Role Phone Md Yandel Primary Care Provider Unavailabl e Reason for Visit * Reason Comments FYI Encounter Details Date Type Department Care Team (Late Contact Info) Description 01/28/2024 Telephone [facility] [address] [place] [address] Diane Valenzuela, PROBATE LAWYER, YARN TEXTURING MACHINE OPERATOR [address] [address] FYI Social History Tobacco Use [...] Department Care Team (Late Contact Info) Description 07/27/2024 4:00 PM CDT Appointment [facility] [address] [place] [address] Diane Valenzuela, PROBATE LAWYER, YARN TEXTURING MACHINE OPERATOR [address] [place] [address] documented as of this encounter Visit Diagnoses Not on filedocumented in this encounter Care Teams Track Mechanic Relationship Specialty Start Date End Date Md Yandel PCP - General 09/22/11 documented as of this encounter
--- OUTSIDE RECORDS SUMMARY | 2024-07-01 09:02 | XMS_ITS | Encounter Summary ---
Author Organization [facility] Address [address], [place] [address] Care Team Providers Care Manager Of Exhibitions And Collections Name Role Phone Md Yandel Primary Care Provider Unavailabl e Reason for Visit * Reason Comments Follow-up Encounter Details Date Type Department Care Team (Late st Contact Info) Description 03/23/2024 4:00 PM CDT Office Visit [address] [address] Diane Valenzuela MSW, WORKING FOREMAN [address] [place], [place] [address] Anxiety disorder, unspecified type (HRC) (Primary Dx); Depressive disorder; Mild intellectual disabilities; Grief reaction (HRC) Social History Tobacco Use Types Packs/Day Years Used Date Smoking Tobacco: Every Day Cigarettes Sex and Gender Information Value Date Recorded Sex Assigned at Not on file Gender Identity Not on file Sexual Orientation Not on file documented as of this encounter Progress Notes * Diane Valenzuela MSW, WORKING FOREMAN - 03/23/2024 4:00 PM CDT Subjective In [...] Info) Description 07/27/2024 4:00 PM CDT Appointment [facility] [address] [place], [place] [phone] Diane Valenzuela MSW, WORKING FOREMAN [address] [place] [address] documented as of this encounter Visit Diagnoses Diagnosis Anxiety disorder, unspecified type (HRC)- Primary Depressive disorder Depressive disorder, not elsewhere classified Mild intellectual disabilities Grief reaction (HRC) Adjustment disorder with depressed mood documented in this encounter Care Teams Manager Of Exhibitions And Collections Relationship Specialty Start Date End Date Md Yandel PCP - General 09/22/11 documented as of this encounter
--- OUTSIDE RECORDS SUMMARY | 2024-07-01 09:02 | XMS_ITS | Encounter Summary ---
Author Organization [facility] Address [address] [address] Care Team Providers Care Volleyball Coach Name Role Phone Md Yandel Primary Care Provider Unavailabl e Reason for Visit * Reason Comments UPDATE Encounter Details Date Type Department Care Team (Late st Contact Info) Description 03/22/2024 Telephone [facility] [address] [place] [address] Diane Valenzuela, DATABASE PROGRAMMER ANALYST, [facility] [address] [facility] [place], [place] [phone] UPDATE Social History Tobacco Use Types Packs/Day [...] Info) Description 07/27/2024 4:00 PM CDT Appointment [facility] [address] [place] [address] Diane Valenzuela, DATABASE PROGRAMMER ANALYST, [facility] [address] [place] [address] documented as of this encounter Visit Diagnoses Not on filedocumented in this encounter Care Teams Volleyball Coach Relationship Specialty Start Date End Date Md Yandel PCP - General 09/22/11 documented as of this encounter
== END 2024-07-01 09:00 | disposition home or self-care (01) ==
LOC: RAD 09:00
PROVIDERS: PCP Physician Assistant Medical; Visit Provider Internal Medicine Cardiovascular Disease
DX: I35.0 Nonrheumatic aortic (valve) stenosis (principal); I51.7 Cardiomegaly; R01.1 Cardiac murmur, unspecified; R93.1 Abnormal findings on diagnostic imaging of heart and coronary circulation
CPT/HCPCS: 93306

== ENCOUNTER 2024-10-10 08:17 | Outpatient (CLI) | payer MEDICARE, SELFPAY | END 2024-10-10 08:18 | disposition home or self-care (01) | LOC: FRMREF 08:18 | PROVIDERS: PCP Physician Assistant Medical; Visit Provider Physician Assistant Medical | DX: I10 Essential (primary) hypertension (principal); Z95.2 Presence of prosthetic heart valve | CPT/HCPCS: 80048 ==

== ENCOUNTER 2024-10-13 08:50 | Outpatient (CLI) | payer MEDICARE, SELFPAY | END 2024-10-13 08:51 | disposition home or self-care (01) | LOC: NFLDREF 10-24 14:32 | PROVIDERS: PCP Physician Assistant Medical; Referring Provider Physician Assistant Medical; Visit Provider Physician Assistant Medical | DX: Z79.01 Long term (current) use of anticoagulants (principal) | CPT/HCPCS: 85610 ==

== ENCOUNTER 2024-10-24 15:17 | Outpatient (CLI) | payer MEDICARE, SELFPAY ==
--- NOTE | 2024-11-01 11:32 | W.PM.SLEEP ---
Sleep Study Details Details Interpreting Provider: Nayely Date of Sleep Study: 10/24/24 Sleep Study Details: STUDY TYPE:? Home unattended ? BMI:? 36.6 ORDERING PROVIDER:? Nayely INDICATION:? Concerned about sleep apnea ? SLEEP SUMMARY:? 541 minutes monitored RESPIRATORY SUMMARY:? AHI 16.1 Low oxygen 87 0.6% of study oxygen less than 90% Snoring 50.9% PERIODIC LIMB MOVEMENTS OF SLEEP:? Not recorded CARDIAC:? Range 40-104, mean 68.2 beats per minute IMPRESSION:? Moderate obstructive sleep apnea RECOMMENDATION: Treatment options include weight loss, CPAP and/or dental appliance.
== END 2024-10-24 15:18 | disposition home or self-care (01) ==
LOC: SLEEP 15:18
PROVIDERS: PCP Physician Assistant Medical; Visit Provider Otolaryngology
DX: G47.33 Obstructive sleep apnea (adult) (pediatric) (principal)
CPT/HCPCS: 95806

== ENCOUNTER 2024-11-17 08:55 | Outpatient (CLI) | payer MEDICARE, SELFPAY | END 2024-11-17 08:56 | disposition home or self-care (01) | LOC: NFLDREF 11-19 03:05 | PROVIDERS: PCP Physician Assistant Medical; Referring Provider Physician Assistant Medical; Visit Provider Physician Assistant Medical | DX: Z79.01 Long term (current) use of anticoagulants (principal) | CPT/HCPCS: 82565 ==

== ENCOUNTER 2024-12-01 08:38 | Outpatient (CLI) | payer MEDICARE, SELFPAY | END 2024-12-01 08:39 | disposition home or self-care (01) | LOC: NFLDREF 12-02 11:08 | PROVIDERS: PCP Physician Assistant Medical; Referring Provider Physician Assistant Medical; Visit Provider Physician Assistant Medical | DX: E03.9 Hypothyroidism, unspecified (principal); Z79.01 Long term (current) use of anticoagulants | CPT/HCPCS: 84439; 84443 ==

== ENCOUNTER 2025-03-09 10:03 | Outpatient (CLI) | payer MEDICARE, SELFPAY | END 2025-03-09 10:04 | disposition home or self-care (01) | LOC: NFLDREF 03-11 08:08 | PROVIDERS: PCP Physician Assistant Medical; Referring Provider Physician Assistant Medical; Visit Provider Physician Assistant Medical | DX: E03.9 Hypothyroidism, unspecified (principal); Z79.01 Long term (current) use of anticoagulants | CPT/HCPCS: 84439; 84443 ==

== ENCOUNTER 2025-06-06 09:50 | Outpatient (CLI) | payer MEDICARE, SELFPAY | END 2025-06-06 09:51 | disposition home or self-care (01) | LOC: NFLDREF 06-13 02:49 | PROVIDERS: PCP Physician Assistant Medical; Referring Provider Physician Assistant Medical; Visit Provider Physician Assistant Medical | DX: Z00.00 Encounter for general adult medical examination without abnormal findings (principal); E03.9 Hypothyroidism, unspecified; I10 Essential (primary) hypertension; G47.33 Obstructive sleep apnea (adult) (pediatric) | CPT/HCPCS: 80053; 80061; 84443 ==

== ENCOUNTER 2025-07-11 10:30 | Outpatient (RCR) | payer MEDICARE, SELFPAY ==
--- NOTE | 2025-06-20 12:42 | PT.OPE ---
[facility] PT [facility] Outpatient Eval Start: 06/20/25 09:50 Freq: Status: Active Protocol: Document 06/20/25 12:41 CJT (Rec: 06/20/25 12:42 CJT [id number]) E-signed By Sumit Greco PT Physical Therapy Outpatient Evaluation Insurance Information Recert Due Date 09/18/25 Insurance Name Medicare B Medical Diagnosis M70.61 - trochanteric bursitis of R hip Treating Diagnosis M25.551 - R hip pain Referring Damian Baldwin Subjective Preferred Name Lyndon Subjective Pt presents with history of R lateral hip pain. Pts pain has improved remarkably since his injection last week and is reporting no pain at this time. Pt was previously having pain in the lateral aspect of his R hip with walking and laying on his R side. Pt is accompanied by his industrial truck operator Shirley today. 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 [employer] Precautions Therapy Limitations/ Not Limited Systems Review Objective Other/Pertinent R Hip ROM Objective Flexion - 100 - limited by abdominal mass IR/ER - 30/35 L Hip ROM Flexion - 100 - limited by abdominal mass IR/ER - 25/35 R knee ROM - WFL L knee ROM - WFL R Hip Strength Flexion - 5/5 MMT Abduction - 4/5 MMT Adduction - 4+/5 MMT IR - 5/5 MMT ER - 5/5 MMT L Hip Strength Flexion - 5/5 MMT Abduction - 4/5 MMT Adduction - 4+/5 MMT IR - 5/5 MMT ER - 5/5 MMT R knee Extension - 5/5 MMT R Knee Flexion - 5/5 MMT L knee Extension - 5/5 MMT L knee Flexion - 5/5 MMT R ankle DF - 5/5 MMT L ankle DF - 5/5 MMT Palpation: pt denies pain with palpation Gait: R lean with R stance phase Special Testing Slump: increased neural tension behind B knees SLR: negative FADIR: negative B FLY: negative B Piriformis: negative b Hamstring: moderately positive B Assessment Assessment/ Lyndon is a very pleasant year old male who presents to [facility] for evaluation and treatment of R hip pain. Pts ROM and strength of R hip is actually quite good with exception of hip abduction strength which was 4/5 MMT. He also demonstrates a subtle lean to the R while walking when in R stance phase. This is also likely due to R hip abduction weakness contributing to bursal irritation. Pt will benefit from strengthening exercises of his B hips to provide improved stability with ambulation. The nature of the pts condition was explained and all questions were answered to the pts satisfaction. Skilled PT services are medically necessary to address deficits and return patient to highest level of function. Recommend physical therapy sessions 1/week for 4-6 weeks. Pt agrees with this plan . Printout of HEP was given for I completion and pt gives verbal understanding of each exercise. Primary Functional Walking Limitations Plan of Care Rehabilitation Good Potential Physical Therapy STG - To be completed in 4 weeks: Goals 1. Pt will demo 5/5 MMT for hip abduction bilaterally to provide improved support during ambulation to reduce irritation of R hip. LTG - To be completed in 6 weeks: 1. Pt to be I with HEP so that they may I manage progression of symptoms. 2. Pt will report max 2/10 pain in R hip with all activities so that he may continue to perform all job duties and ADLs with manageable level of pain. Treatment Plan/ Electrical Stimulation,Gait Training,Heat,Ice/Cold/ Direct Interventions Vasopneumatic,Joint Mobilization,Manual Therapy, Neuromuscular Re-ed,Self-Care/Home Management, Therapeutic Activities,Therapeutic Exercises Frequency/Duration 1/week for 4-6 weeks Patient Will Be Completion of LTG(s),Skills Plateau,Independent w/HEP, Discharged From Independently Progressing Therapy Evaluation Billing Untimed Code 36 Treatment Minutes PT Eval No Charge No Complexity Low Certification Information Initial 06/20/25 Certification Date Ending Certification 09/18/25 Date Provider Signature Yes Required Provider Signature POC & Medical Necessity Shows Agreement With Physician NPI Number Write NPI# Here Physician Comment/ : Change Physician Signature Please Sign/Date Here & Date Requested
== END 2025-09-12 09:01 | disposition home or self-care (01) ==
PROVIDERS: PCP Physician Assistant Medical; Visit Provider Physician Assistant Surgical
DX: M70.61 Trochanteric bursitis, right hip (principal); Z51.89 Encounter for other specified aftercare
CPT/HCPCS: 97110; 97140; 97161